=== PATIENT | female | born 1935 | race Caucasian/White ===

== ENCOUNTER 2018-09-11 10:25 | Outpatient (CLI) | payer OTHER | END 2018-09-11 17:00 | disposition home or self-care (01) | LOC: MAMO-SONO 10:25 | DX: R92.0 Mammographic microcalcification found on diagnostic imaging of breast (principal); N63.10 Unspecified lump in the right breast, unspecified quadrant; N84.0 Polyp of corpus uteri ==

== ENCOUNTER 2018-10-26 09:44 | Outpatient (CLI) | payer OTHER | END 2018-10-26 17:00 | disposition home or self-care (01) | LOC: TOM 09:44 | DX: K63.5 Polyp of colon (principal) ==

== ENCOUNTER 2019-06-06 09:07 | Outpatient (CLI) | payer OTHER | END 2019-06-06 09:11 | disposition home or self-care (01) | LOC: SONOGRAMA 09:07 | DX: E04.1 Nontoxic single thyroid nodule (principal) ==